=== PATIENT | male | born 1965 | race African-American/Black ===

== ENCOUNTER 2017-02-09 17:19 | Emergency (ER) | payer SELFPAY ==
[~2017-02-09] VITALS: Ht 182.9 cm; Wt 82.0 kg
[2017-02-09 17:21] VITALS: BP 145/90
== END 2017-02-09 17:50 | disposition left against medical advice (07) ==
LOC: ER 17:49
DX: S60.311A Abrasion of right thumb, initial encounter (principal); Z53.21 Procedure and treatment not carried out due to patient leaving prior to being seen by health care provider; V29.88XA Motorcycle rider (driver) (passenger) injured in other specified transport accidents, initial encounter; Y93.73 Activity, racquet and hand sports; Y92.89 Other specified places as the place of occurrence of the external cause; Y99.8 Other external cause status